=== PATIENT | female | born 1980 | race Caucasian/White ===

== ENCOUNTER 2020-05-10 09:05 | Outpatient (CLI) | payer OTHER, SELFPAY ==
[2020-05-10 09:32] LABS: Hematocrit 38.5 % (37.0-47.0); Mean Corpuscular HGB Conc 33.8 g/dl (32-36); Mean Corpuscular Volume 88.7 fl (80-100); Mean Platelet Volume 10.3 fl (7.4-10.4); Platelet Count Result 201 k/mm3 (150-375); Red Blood Count 4.34 M/mm3 (4.2-5.4); White Blood Count 3.7 K/mm3 (4.5-10.0)
[2020-05-10 09:37] LABS: Alanine Aminotransferase 14 U/L (4-35); Albumin Level 4.6 g/dL (3.5-5.1); Alkaline Phosphatase 46 U/L (38-126); Aspartate Amino Transferase 24 U/L (14-36); Bilirubin,Total 0.4 mg/dL (0.2-1.3); Blood Urea Nitrogen 18 mg/dL (7-17); Calcium 9.2 mg/dL (8.4-10.2); Carbon Dioxide 24 mmol/L (22-30); Chloride 105 mmol/L (98-107); Estimated Glomerular Filt Rate > 60; Glucose 94 mg/dL (65-105); Potassium 4.2 mmol/L (3.4-5.0); Sodium 137 mmol/L (137-145)
== END 2020-05-10 09:06 | disposition home or self-care (01) ==
LOC: ANHLAB 09:07
PROVIDERS: PCP Family Medicine; Visit Provider Physician Assistant
DX: Z00.00 Encounter for general adult medical examination without abnormal findings (principal); Z13.220 Encounter for screening for lipoid disorders
CPT/HCPCS: 36415; 80053; 85027

== ENCOUNTER 2023-03-04 10:04 | Outpatient (CLI) | payer OTHER, SELFPAY ==
--- NOTE | ~2023-03-04 | MM_ITS ---
EXAMINATION: MM screening charlene BI w shagufta HISTORY: Screening mammogram TECHNIQUE: Craniocaudal and mediolateral oblique 3-D tomosynthesis images were obtained and synthetic 2-D images were generated. CAD analysis was submitted and interpreted. COMPARISON: No prior mammogram is available for comparison at this institution. BREAST PARENCHYMAL COMPOSITION:The breasts are extremely dense, which lowers the sensitivity of mammo graphy. FINDINGS: There is an asymmetry in the slightly inner, central left breast on CC view. No definite co rrelate seen on MLO view. No mass lesion or distortion seen in the right breast. No suspicious microc alcifications in either breast. IMPRESSION: Asymmetry in the left breast on CC view, as detailed above. While this may represent summation artifa ct, spot compression view, and possibly ultrasound, are recommended for further evaluation at this ti tn. BI-RADS Category 0: Incomplete: Needs additional imaging evaluation. Reviewed, dictated and finalized at [facility]. IMPRESSION: Asymmetry in the left breast on CC view, as detailed above. While this may repr esent summation artifact, spot compression view, and possibly ultrasound, are r ecommended for further evaluation at this time. BI-RADS Category 0: Incomplete: Needs additional imaging evaluation.
== END 2023-03-04 10:05 | disposition home or self-care (01) ==
LOC: ANHIMG 10:08
PROVIDERS: PCP Family Medicine; Visit Provider Obstetrics & Gynecology
DX: Z12.31 Encounter for screening mammogram for malignant neoplasm of breast (principal); R92.8 Other abnormal and inconclusive findings on diagnostic imaging of breast
CPT/HCPCS: 77063; 77067

== ENCOUNTER 2023-04-06 13:09 | Outpatient (CLI) | payer OTHER, SELFPAY ==
--- NOTE | ~2023-04-06 | MMUS_ITS ---
EXAMINATION: MM diagnostic charlene LT w shagufta, US breast LT limited HISTORY: Asymmetry of slightly inner central left breast on screening craniocaudal view of 03/04/2023 TECHNIQUE: Additional 3-D tomosynthesis images of the left breast were performed and synthetic 2-D im ages were generated. CAD analysis was submitted and interpreted. High resolution upper inner and lowe r inner quadrant left breast ultrasound was performed. COMPARISON: 03/04/2022 bilateral screening mammogram FINDINGS: MAMMOGRAPHIC FINDINGS: No suspicious mass is evident. No architectural distortion is detected. No microcalcifications, skin thickening or retraction is noted. The heterogeneously dense stroma may obscure a mass. ULTRASOUND: No suspicious mass or shadowing is detected in the upper inner or lower inner quadrants of the left b reast IMPRESSION: 1. No mammographic evidence of malignancy 2. Routine annual mammographic screening is recommended BI-RADS Category 1: Negative Reviewed, dictated and finalized at location [facility]. IMPRESSION: 1. No mammographic evidence of malignancy 2. Routine annual mammographic screening is recommended BI-RADS Category 1: Negative
== END 2023-04-06 13:10 | disposition home or self-care (01) ==
LOC: ANHIMG 13:11
PROVIDERS: PCP Family Medicine; Visit Provider Obstetrics & Gynecology
DX: R92.8 Other abnormal and inconclusive findings on diagnostic imaging of breast (principal)
CPT/HCPCS: 76642; 77061; 77065; G0279

== ENCOUNTER 2025-02-10 11:38 | Outpatient (CLI) | payer BC, SELFPAY ==
--- OUTSIDE RECORDS SUMMARY | 2025-02-10 11:44 | XMS_ITS | Clinical Summary ---
Author Organization [facility] [employer] Address [address] [place] [address] Care Team Providers Care Advertising Agent Name Role Phone Minerva Desai MD Primary Care Provider [phone] Source Comments [facility],non-owned Affiliates and Associated Physician Practices is amultiple site organization consisting of ambulatory clinics and hospital sitesin [place], [place], [place] and [place]. This disclosure is being madepursuant to the Care Everywhere program and may not contain all information available regarding this patient. Last updated 18.[facility] Allergies No known active allergies Medications * Be aware that medications may not be up to date on this document. Alwaysverify current medications with the patient. acetaminophen (TYLENOL) 325 MG tablet Take 2 Tabs by mouth every 4 hours as needed for Fever. Maximum allowable Acetaminophen amount = 4 Grams / 24 hours. 9 Active montelukast (SINGULAIR) 10 MG tablet Take 1 Tab by mouth at bedtime. 0 0 9 Active VIT-FE [id number] PO Take 1 Tab by mouth daily. 90 5 9 Active Diaphragm Arc-Spring (ORTHO DIAPHRAGM ALL-FLEX) 70 MM DPRHIndication s:Encounter for fitting of diaphragm Insert 1 Units into the vagina as needed 1 0 9 Active Active Problems Problem Noted Date Diagnosed Date Fever 02/12/2009 Asthma Menorrhagia Overview (01/27/2009): Controlled with oral contraceptive pills. Dysmenorrhea Family History Medical History Relation Name Comments Hypertension Father Cancer Maternal Aunt breast Diabetes Maternal Grandfather Diabetes Maternal Grandmother CAD (Coronary Artery Disease) Paternal Grandfather Diabetes Paternal Grandfather Cancer Paternal Grandmother breast Diabetes Paternal Grandmother Relation Name Status Comments Father Maternal Aunt Maternal Grandfather Maternal Grandmother Paternal Grandfather Paternal Grandmother Social History Tobacco Use Types Packs/Day Years Used Date Smoking Tobacco: Never Alcohol Use Standard Drinks/Week Comments Yes 2.5 (1 standard drink = 0.6 oz p ure alcohol) Comments Unknown Sex and Gender Information Value Date Recorded Sex Assigned at Not on file Legal Sex Female 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 Gender Identity Not on file Sexual Orientation Not on file 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 on file Not on file Not on fi le Last Filed Vital Signs Vital Sign Reading Time Taken Comments Blood Pressure 103/69 12/07/2009 8:07 AM WEIGHTS AND MEASURES INSPECTOR Pulse 66 12/07/2009 8:07 AM WEIGHTS AND MEASURES INSPECTOR Temperature 37.1 C (98.8 F) 12/07/2009 7:59 AM WEIGHTS AND MEASURES INSPECTOR Respiratory Rate 18 12/07/2009 8:07 AM WEIGHTS AND MEASURES INSPECTOR Oxygen Saturation 99% 12/07/2009 8:07 AM WEIGHTS AND MEASURES INSPECTOR Inhaled Oxygen Concentration - - Weight 69.9 kg (154 lb) 12/07/2009 6:24 AM WEIGHTS AND MEASURES INSPECTOR Height 167.6 cm (5' 5.98 ) 12/07/2009 6:24 AM CS T Body Mass Index 24.87 12/07/2009 6:24 AM WEIGHTS AND MEASURES INSPECTOR Plan of Treatment Health Maintenance Due Date Last Done Comments LIPID TESTING 1981 MAMMOGRAM 1981 HIV SCREENING 02/02/1996 HEPATITIS C SCREENING 01/28/1999 DTAP/TDAP/TD VACCINES (1 - Tdap) 02/02/2000 HEPATITIS B VACCINE (1 of 3 - 19+ 3-dose series) 02/02/2000 COVID-19 VACCINE ( - 2023-2 5 season) 2024 DEPRESSION SCREENING 10/26/2024 INFLUENZA VACCINE (Season Ended) 2025 ZOSTER VACCINE (1 of 2) 2031 HIB VACCINE Aged Out No longer eligi ble based on patient's age to complete this topic HPV VACCINE Aged Out No longer eligi ble based on patient's age to complete this topic MENINGOCOCCAL (Group B) VACC INE SHARED DECISION-MAKING Aged Out No longer eligibl e based on patient's age to complete this topic MENINGOCOCCAL GROUPS A/C/Y/W VACCINE Aged Out No longer eligible b ased on patient's age to complete this topic PNEUMOCOCCAL VACCINE Aged Out No long er eligible based on patient's age to complete this topic Advance Directives * Full Code (Latest Code Status on File) Date Activated Date Inactivated Comments 02/12/2009 10:20 PM 02/15/2009 8:03 AM Care Teams Advertising Agent Relationship Specialty [place] [id number] [address] [place] [address] PCP - General 02/12/09
[2025-02-10 12:59] LABS: Influenza A QL RT-PCR Negative (Negative); Influenza B QL RT-PCR Negative (Negative); SARS-CoV-2 RNA PCR Negative (Negative)
== END 2025-02-10 11:39 | disposition home or self-care (01) ==
PROVIDERS: PCP Family Medicine; Visit Provider Physician Assistant
DX: R53.81 Other malaise (principal); R05.9 Cough, unspecified
CPT/HCPCS: 87636